=== PATIENT | male | born 1965 ===

== ENCOUNTER → 2021-07-25 | Outpatient (CLI) | payer OTHER ==
[~2021-07-25] MED LIST: FOSI40TA52 PO
== END ==
LOC: LAB 11:26
PROVIDERS: ATTEND Internal Medicine Pulmonary Disease
DX: U07.1 COVID-19 (principal)
CPT/HCPCS: U0003; U0005

== ENCOUNTER → 2021-07-26 | Outpatient (CLI) | payer OTHER ==
[~2021-07-26] MED LIST changes: +SOTROVIMAB 500 MG in IV DEXTROSE 5% 50 ML IV ONE
[2021-07-26 13:34] VITALS: BP 125/85
[2021-07-26 13:49] VITALS: BP 128/81
[2021-07-26 14:15] VITALS: BP 138/87
[2021-07-26 15:00] VITALS: BP 140/84
== END | disposition home or self-care (01) ==
LOC: OPS 13:02
PROVIDERS: ATTEND Internal Medicine Pulmonary Disease
DX: U07.1 COVID-19 (principal)
CPT/HCPCS: J7060; M0247; Q0247; 96365